=== PATIENT | female | born 1975 ===

== ENCOUNTER 2019-04-03 10:51 | Outpatient (CLI) | payer OTHER | END 2019-04-03 11:02 | disposition home or self-care (01) | LOC: SONOGRAMA 10:51 | DX: E04.2 Nontoxic multinodular goiter (principal) ==

== ENCOUNTER 2021-08-25 07:40 | Outpatient (CLI) | payer OTHER | END 2021-08-25 07:57 | disposition home or self-care (01) | LOC: SONOGRAMA 07:40 | PROVIDERS: ATTEND Pathology Anatomic Pathology & Clinical Pathology | DX: E04.2 Nontoxic multinodular goiter (principal) ==

== ENCOUNTER 2023-07-30 08:02 | Outpatient (CLI) | payer OTHER | END 2023-07-30 08:05 | disposition home or self-care (01) | LOC: SONOGRAMA 08:02 | PROVIDERS: ATTEND Pathology Anatomic Pathology & Clinical Pathology | DX: D34 Benign neoplasm of thyroid gland (principal); E04.9 Nontoxic goiter, unspecified ==